=== PATIENT | female | born 2000 | race Caucasian/White ===

== ENCOUNTER 2023-05-28 01:51 | Emergency (ER) | payer OTHER ==
[~2023-05-28] VITALS: Ht 160 cm; Wt 74.8 kg
[2023-05-28] VITALS (7 sets, daily range): BP systolic 100–122; BP diastolic 42–76
[2023-05-28 02:35] LABS: BASO% 0.2 % (0-3); EOS% 0.9 % (0-8); HEMATOCRIT 41.8 % (37.0-47.0); HEMOGLOBIN 13.8 g/dl (12.0-16.0); IMMATURE GRANULOCYTES 0.1 % (0.0-5.0); LYMPH% 23.9 % (15-41); MEAN CELL VOLUME 85.5 fL CALC (80.0-100.0); MEAN CORPUSCULAR HGB 28.2 pG CALC (26.0-32.0); NEUT# 7.7 thou/uL (2.00-7.15); NEUT% 68.9 % (42-76); RED BLOOD COUNT 4.89 mill/uL (4.20-5.60); RED CELL DISTRI WIDTH 12.1 % (11.5-15.5)
[2023-05-28 02:54] LABS: ALBUMIN 4.7 g/dL (3.2-5.0); ALKALINE PHOSPHATASE 64 u/l (38-126); AMYLASE 65 u/l (30-110); ANION GAP 13 (6-22 (CALC)); BILIRUBIN, TOTAL 0.6 mg/dL (0.02-1.3); BUN 9 mg/dL (7-17); BUN/CREATININE RATIO 14 (12-20 (CALC)); CARBON DIOXIDE 22 mmol/l (22-30); CHLORIDE 110 mmol/l (95-108); CREATININE 0.7 mg/dL (0.5-1.0); GFR FOR AFR.AMER. > 60 ML/MIN (>=60 (CALC)); GFR OTHER RACES > 60 ML/MIN (>=60 (CALC)); LIPASE 101 u/l (23-300); SGOT/AST 27 u/l (14-36); SODIUM 141 mmol/l (137-146); TOTAL PROTEIN 8.5 g/dL (6.3-8.2)
[2023-05-28 03:41] LABS: URINE BLOOD DIPSTICK Trace-intact (NEGATIVE); URINE COLOR Yellow; URINE GLUCOSE - DIPSTICK Negative (NEGATIVE); URINE KETONE 15 mg/dL (NEGATIVE); URINE LEUK ESTERASE Negative (NEGATIVE); URINE NITRITE - DIPSTICK Negative (Negative); URINE PROTEIN - DIPSTICK Negative (NEG-TRACE); URINE SPECIFIC GRAVITY >=1.030
== END 2023-05-28 05:55 | disposition home or self-care (01) | DRG 880 ==
LOC: ED 01:51
PROVIDERS: Family Medicine
DX: F41.1 Generalized anxiety disorder (principal); F43.0 Acute stress reaction; Z20.822 Contact with and (suspected) exposure to COVID-19